=== PATIENT | male | born 1950 | race Two or more races ===

== ENCOUNTER 2021-08-30 15:51 | Inpatient (IN) | payer MEDICARE, OTHER ==
[~2021-08-30] VITALS: Ht 182.9 cm; Wt 113.0 kg
[2021-08-30 16:48] LABS: Basophils # (auto) 0.1 10 ^3/uL (0-0.2); Basophils % (auto) 0.4 % (0.0-2.0); Eosinophils # (auto) 0 10 ^3/uL (0-0.8); Hematocrit 48.1 % (41.0-53.0); Lymphocytes # (auto) 0.9 10 ^3/uL (0.4-5.4); Mean Corpuscular Hemoglobin 28.3 pg (28.0-32.0); Mean Corpuscular Hgb Conc. 33.3 g/dL (32.0-36.0); Monocytes # (auto) 1.1 10 ^3/uL (0-1.3); Monocytes % (auto) 8.8 % (0.0-12.0); Neutrophils # (auto) 10.7 10 ^3/uL (1.6-8.6); Neutrophils % (auto) 83.8 % (37.0-80.0); Red Blood Cells 5.66 10^6/uL (4.5-5.90); Red Cell Distribution Width 14.5 % (11.8-14.3); White Blood Cell 12.8 10^3/uL (4.4-10.8)
[2021-08-30 17:13] LABS: Urine Bacteria FEW /hpf (None Seen); Urine Blood Negative /uL (Negative); Urine Hyaline Cast FEW /lpf (0 - 2); Urine Mucus FEW (None Seen); Urine Specific Gravity 1.015 (1.001-1.035); Urine WBC <1 /hpf (0 - 3)
[2021-08-30] MEDS ORDERED: ONDANSETRON HCL 4 MG/2 ML VIAL IV ONE (17:30)
[2021-08-30] MEDS ORDERED: MORPHINE SULFATE 4 MG/ML SYR/VIAL IV ONE (17:30)
[2021-08-30] MEDS ORDERED: cefTRIAXone 1GM/50ML D5W 50 ML IV ONE (17:45)
[2021-08-30] MEDS ORDERED: AZITHROMYCIN 500MG/ 250ML 250 ML IV ONE (17:45)
[2021-08-30] MEDS ORDERED: NITROGLYCERIN 0.4 MG SL TAB SL PRN (19:00)
[2021-08-30] MEDS ORDERED: MORPHINE SULFATE INJECTION 2 MG/ML SYRG IV PRN (19:00)
[2021-08-30] MEDS ORDERED: ONDANSETRON HCL 4 MG/2 ML VIAL IV PRN (19:45)
[2021-08-30] MEDS ORDERED: DOCUSATE SOD 100 MG CAP PO PRN (19:45)
[2021-08-30] MEDS ORDERED: DEXTROSE (50%) 50ML SYRG IV PRN (19:45)
[2021-08-30] MEDS ORDERED: levoFLOXacin 500MG 100 ML IV ONE (19:45)
[2021-08-30] MEDS ORDERED: metroNIDAZOLE 500MG/100ML 100 ML IV ONE (19:45)
[2021-08-30] MEDS ORDERED: LORazepam 0.5 MG TAB PO PRN (19:45)
[2021-08-30] MEDS ORDERED: hydrALAZINE HCL 20 MG/ML VL IV PRN (19:45)
[2021-08-30] MEDS ORDERED: FAMOTIDINE (10MG/ML) 2ML VL IV ONE (19:45)
[2021-08-30 20:24] LABS: Albumin 2.7 g/dL (3.4-5.0); Calcium 8.7 mg/dL (8.5-10.1); Potassium 4.6 mmol/L (3.5-5.1)
[2021-08-30 20:28] LABS: BUN/Creatinine Ratio 13.5; Bilirubin, Total 0.5 mg/dL (0.2-1.0); Cholesterol 77 mg/dL (< 200); Total Protein 7.4 g/dL (6.4-8.2); Triglycerides 86 mg/dL (< 150)
[2021-08-30 20:31] LABS: HDL Cholesterol 30 mg/dL (40-59); LDL Cholesterol 37 mg/dL (< 100)
[2021-08-30] MEDS: SODIUM CHLORIDE 0.9% 1,000 ML IV SCH (20:52)
[2021-08-30] MEDS: InsuLIN REG 1unit/0.01ml Soln (100units/ml) SC SCH (22:00)
[2021-08-30] MEDS: metroNIDAZOLE 500MG/100ML 100 ML IV SCH (22:00)
[2021-08-30] MEDS: ACCU-CHEK COMFORT CURVE STRIP VI SCH (22:40)
[2021-08-30] MEDS: MORPHINE SULFATE INJECTION 2 MG/ML SYRG IV PRN (22:43)
[2021-08-31] MEDS: metroNIDAZOLE 500MG/100ML 100 ML IV SCH ×3 (05:52→22:14)
[2021-08-31] MEDS: MORPHINE SULFATE INJECTION 2 MG/ML SYRG IV PRN ×4 (05:53→23:33)
[2021-08-31 06:00] VITALS: BP 132/84
[2021-08-31] MEDS: ACCU-CHEK COMFORT CURVE STRIP VI SCH ×4 (07:00→22:15)
[2021-08-31] MEDS: InsuLIN REG 1unit/0.01ml Soln (100units/ml) SC SCH ×4 (07:00→22:00)
[2021-08-31 08:00] VITALS: BP 122/68
[2021-08-31 08:52] LABS: Basophils # (auto) 0 10 ^3/uL (0-0.2); Basophils % (auto) 0.2 % (0.0-2.0); Eosinophils # (auto) 0 10 ^3/uL (0-0.8); Eosinophils % (auto) 0.3 % (0.0-7.0); Hemoglobin 14.5 g/dL (13.5-17.5); Lymphocytes # (auto) 0.9 10 ^3/uL (0.4-5.4); Lymphocytes % (auto) 8.4 % (10.0-50.0); Mean Corpuscular Hemoglobin 27.9 pg (28.0-32.0); Mean Corpuscular Hgb Conc. 32.9 g/dL (32.0-36.0); Monocytes # (auto) 1.1 10 ^3/uL (0-1.3); Monocytes % (auto) 10.2 % (0.0-12.0); Neutrophils # (auto) 9.1 10 ^3/uL (1.6-8.6); Neutrophils % (auto) 80.9 % (37.0-80.0); Nucleated Red Blood Cells % 0.1 %; Red Blood Cells 5.18 10^6/uL (4.5-5.90); Red Cell Distribution Width 14.6 % (11.8-14.3); White Blood Cell 11.2 10^3/uL (4.4-10.8)
[2021-08-31] MEDS: levoFLOXacin 500MG 100 ML IV SCH (09:21)
[2021-08-31] MEDS: ASPirin 81 mg TAB PO SCH (09:21)
[2021-08-31] MEDS: FAMOTIDINE (10MG/ML) 2ML VL IV SCH (09:22)
[2021-08-31] MEDS ORDERED: ENOXAPARIN SOD 40 MG/0.4 ML SYRINGE SC SCH (10:00)
[2021-08-31 10:06] LABS: Albumin 2.6 g/dL (3.4-5.0); Calcium 8.6 mg/dL (8.5-10.1); Magnesium 3.1 mg/dL (1.6-2.6); Potassium 4.3 mmol/L (3.5-5.1)
[2021-08-31 10:23] LABS: BUN/Creatinine Ratio 15.7; Bilirubin, Total 0.5 mg/dL (0.2-1.0); Phosphorus 3.4 mg/dL (2.5-4.90); Total Protein 6.9 g/dL (6.4-8.2)
[2021-08-31 10:57] LABS: INR 1.12 (0.9-1.15); Partial Thromboplastin Time 25.4 sec (23.6-33.0)
[2021-08-31] MEDS: SODIUM CHLORIDE 0.9% 1,000 ML IV SCH (12:07)
[2021-08-31 13:00] VITALS: BP 109/60
[2021-08-31 16:00] VITALS: BP 126/69
[2021-08-31 21:41] VITALS: BP 100/64
[2021-08-31] MEDS: ATORVASTATIN 20 MG TAB PO SCH (22:13)
[2021-08-31] MEDS: ENOXAPARIN SOD 40 MG/0.4 ML SYRINGE SC SCH (22:15)
[2021-09-01] MEDS: MORPHINE SULFATE INJECTION 2 MG/ML SYRG IV PRN ×4 (04:03→17:43)
[2021-09-01 05:00] VITALS: BP 123/67
[2021-09-01] MEDS: metroNIDAZOLE 500MG/100ML 100 ML IV SCH ×3 (06:15→23:10)
[2021-09-01] MEDS: ACCU-CHEK COMFORT CURVE STRIP VI SCH ×4 (06:15→23:06)
[2021-09-01] MEDS: InsuLIN REG 1unit/0.01ml Soln (100units/ml) SC SCH ×4 (06:40→23:10)
[2021-09-01 07:24] LABS: Calcium 8.3 mg/dL (8.5-10.1); Potassium 4.7 mmol/L (3.5-5.1)
[2021-09-01 07:28] LABS: BUN/Creatinine Ratio 15.8
[2021-09-01 07:31] LABS: Basophils # (auto) 0 10 ^3/uL (0-0.2); Basophils % (auto) 0.3 % (0.0-2.0); Eosinophils # (auto) 0.1 10 ^3/uL (0-0.8); Eosinophils % (auto) 0.9 % (0.0-7.0); Hematocrit 42.5 % (41.0-53.0); Hemoglobin 13.9 g/dL (13.5-17.5); Lymphocytes # (auto) 1.1 10 ^3/uL (0.4-5.4); Lymphocytes % (auto) 12.4 % (10.0-50.0); Mean Corpuscular Hgb Conc. 32.8 g/dL (32.0-36.0); Mean Corpuscular Volume 85.4 fL (80.0-100.0); Monocytes % (auto) 11.7 % (0.0-12.0); Neutrophils # (auto) 6.4 10 ^3/uL (1.6-8.6); Neutrophils % (auto) 74.7 % (37.0-80.0); Nucleated Red Blood Cells % 0.1 %; Red Blood Cells 4.98 10^6/uL (4.5-5.90); Red Cell Distribution Width 14.7 % (11.8-14.3); White Blood Cell 8.6 10^3/uL (4.4-10.8)
[2021-09-01 08:00] VITALS: BP 135/79
[2021-09-01] MEDS: ASPirin 81 mg TAB PO SCH (09:25)
[2021-09-01] MEDS: levoFLOXacin 500MG 100 ML IV SCH (09:25)
[2021-09-01] MEDS: FAMOTIDINE (10MG/ML) 2ML VL IV SCH (09:26)
[2021-09-01] MEDS: ENOXAPARIN SOD 40 MG/0.4 ML SYRINGE SC SCH ×2 (09:26→23:09)
[2021-09-01 12:41] VITALS: BP 129/76
[2021-09-01] MEDS ORDERED: GASTROGRAFIN 120 ML SOL ONE (13:41)
[2021-09-01 16:00] VITALS: BP 136/95
[2021-09-01] MEDS ORDERED: HYDROcodone-ACET 5/325MG TAB PO PRN (16:00)
[2021-09-01 22:00] VITALS: BP 126/82
[2021-09-01] MEDS: ATORVASTATIN 20 MG TAB PO SCH (23:09)
[2021-09-02] MEDS ORDERED: TEMAZEPAM 15 MG CAP PO ONE (00:15)
[2021-09-02] MEDS: MORPHINE SULFATE INJECTION 2 MG/ML SYRG IV PRN (04:40)
[2021-09-02 05:00] VITALS: BP 124/79
[2021-09-02] MEDS: ACCU-CHEK COMFORT CURVE STRIP VI SCH ×3 (06:00→17:00)
[2021-09-02] MEDS: InsuLIN REG 1unit/0.01ml Soln (100units/ml) SC SCH ×3 (06:00→17:00)
[2021-09-02] MEDS: metroNIDAZOLE 500MG/100ML 100 ML IV SCH ×2 (06:40→13:45)
[2021-09-02 08:00] VITALS: BP 139/75
[2021-09-02 09:00] VITALS: BP 139/75
[2021-09-02] MEDS: FAMOTIDINE (10MG/ML) 2ML VL IV SCH (09:01)
[2021-09-02] MEDS: levoFLOXacin 500MG 100 ML IV SCH (09:01)
[2021-09-02] MEDS: ENOXAPARIN SOD 40 MG/0.4 ML SYRINGE SC SCH (09:02)
[2021-09-02] MEDS: ASPirin 81 mg TAB PO SCH (09:02)
[2021-09-02 13:00] VITALS: BP 117/72
[2021-09-02] MEDS ORDERED: LEVO500T31 PO (15:11)
[2021-09-02] MEDS ORDERED: METR500T PO (15:11)
[2021-09-02 16:00] VITALS: BP 147/83
[2021-09-02 16:09] VITALS: BP 117/72
== END 2021-09-02 18:16 | disposition home or self-care (01) | DRG 177 ==
LOC: ER 15:51 → TELE 18:51 → TELE-WESTW 08-31 04:55
PROVIDERS: ADMIT Hospitalist; ATTEND Internal Medicine
DX: U07.1 COVID-19 (principal); J12.82 Pneumonia due to coronavirus disease 2019; R65.10 Systemic inflammatory response syndrome (SIRS) of non-infectious origin without acute organ dysfunction; K52.9 Noninfective gastroenteritis and colitis, unspecified; I10 Essential (primary) hypertension; E11.9 Type 2 diabetes mellitus without complications; E78.5 Hyperlipidemia, unspecified; K42.9 Umbilical hernia without obstruction or gangrene; Z78.9 Other specified health status; Z85.46 Personal history of malignant neoplasm of prostate; Z85.51 Personal history of malignant neoplasm of bladder; Z90.49 Acquired absence of other specified parts of digestive tract; Z90.5 Acquired absence of kidney; Z88.0 Allergy status to penicillin
CPT/HCPCS: 36415; 71045; 74176; 74250; 80048; 80053; 80061; 81001; 82962; 83036; 83605; 83735; 83880; 84100; 84443; 84484; 84550; 85025; 85379; 85610; 85730; 87040; 87077; 87086; 87186; 87426; 93005; 93970; 96365; 96375; G0378; J0696; J1815; J1956; J2405; J3490